=== PATIENT | male | born 1970 | race Caucasian/White ===

== ENCOUNTER 2020-10-18 04:48 | Emergency (ER) | payer OTHER ==
[~2020-10-18] VITALS: Ht 182.8 cm; Wt 77.1 kg
[~2020-10-18 04:48] MED LIST: KEFLEX500 MG PO; NKHM; PERCOCET 325 MG1 TA7 PO
== END 2020-10-18 06:34 | disposition home or self-care (01) ==
LOC: ED 04:48
DX: N48.30 Priapism, unspecified (principal); F17.200 Nicotine dependence, unspecified, uncomplicated; Z79.899 Other long term (current) drug therapy